=== PATIENT | male | born 1995 | race Caucasian/White ===

== ENCOUNTER 2024-11-28 18:25 | Emergency (ER) | payer BC ==
[2024-11-28 19:58] LABS: BLOOD UREA NITROGEN,BUN 7.0 mg/dL (7-18); CARBON DIOXIDE,CO2 31.0 mmol/L (21-32); CHLORIDE,CL 101.0 mmol/L (100-108); CREATININE 0.9 mg/dL (0.8-1.3); EST CRCL DRUG DOSING (CG) 131.9 mL/min; ESTIMATED GFR 118.0 mL/min (>60); GLUCOSE RANDOM 105.0 mg/dL (74-106); POTASSIUM,K 3.7 mmol/L (3.6-5.2); SODIUM,NA 139.0 mmol/L (140-148)
[2024-11-28] MEDS: Ondansetron 4 MG/2 ML SDV IVPUSH ONE (19:59)
[2024-11-28 21:17] LABS: PLATELET COUNT,PLT 274.0 K/uL (130-375); RED BLOOD CELL COUNT 4.9 M/uL (4.14-5.76); WHITE BLOOD CELL COUNT,WBC 6.0 K/uL (3.2-11.0)
== END 2024-11-28 22:39 | disposition home or self-care (01) ==
LOC: JP.ED 18:25
DX: R42 Dizziness and giddiness (principal); R11.2 Nausea with vomiting, unspecified; F10.90 Alcohol use, unspecified, uncomplicated; Z88.8 Allergy status to other drugs, medicaments and biological substances
CPT/HCPCS: 36415; 80048; 80307; 83735; 85027; 96361; 96374; 99283; 99284; A9270; J2405; J7030